=== PATIENT | female | born 1960 | race Caucasian/White ===

== ENCOUNTER → 2017-12-10 13:04 | Outpatient (CLI) | payer OTHER, SELFPAY | PROVIDERS: Family Provider Student in an Organized Health Care Education/Training Program; PCP Student in an Organized Health Care Education/Training Program; Visit Provider Student in an Organized Health Care Education/Training Program | DX: Z12.31 Encounter for screening mammogram for malignant neoplasm of breast (principal) | CPT/HCPCS: 77063; 77067 ==

== ENCOUNTER 2018-04-21 09:52 | Day surgery (SDC) | payer OTHER, SELFPAY ==
[2018-04-21] VITALS (11 sets, daily range): BP systolic 75–123; BP diastolic 50–74; PULSE 51–59; RESP 14–16; TEMP 36.4–37.7; O2SAT 96–100; BMI 24.3
--- NOTE | 2018-04-21 11:08 | PCM.HP.STD ---
Problem List (1) Personal history of colonic polyps Status: Acute History of Present Illness Date of Admission: 04/21/18 The patient is a 57 year old F who has had 2 previous colonoscopies. On her first colonoscopy she had colon polyps identified. Her most recent colonoscopy 5 years ago she was clear. She has no family history of colon cancer. She denies bright red blood per rectum or melena. No abdominal pain. No unexpected weight loss. She otherwise enjoys stable health. Past Medical History Allergies amoxicillin Allergy (Verified 04/19/18 13:27) Rash erythromycin base Allergy (Verified 04/19/18 13:27) Rash kiwi Allergy (Verified 04/19/18 13:27) Rash Sulfa (Sulfonamide Antibiotics) Allergy (Verified 04/19/18 13:27) Rash Home Medications: Ambulatory Orders Medication Instructions Recorded Cholecalciferol (VIT D3) [Vitamin 1,000 unit PO DAILY 06/03/14 D3] Citalopram [Celexa] 10 mg PO DAILY 06/03/14 Ascorbic Acid [Vitamin C] 500 mg PO DAILY 04/19/18 Aspirin E.C. [Ecotrin] 81 mg PO DAILY@0800 04/19/18 [place]-3 Fatty Acids/Fish Oil [Fish 1,000 mg PO DAILY 04/19/18 Oil 1,000 mg Capsule] Pyridoxine HCl [Vitamin B-6] 50 mg PO DAILY 04/19/18 Smoking Status: Never smoker Tobacco Use: Non-smoker Review of Systems Constitutional: Denies: Anorexia Cardiovascular: Denies: Chest Pain Respiratory: Denies: Cough Gastrointestinal: Denies: Abdominal Pain, Melena, Vomiting Skin: Denies: Jaundice Psychiatric: Denies: Anxiety Endocrine: Denies: Change in Body Habitus VTE Information - Inpt Only VTE Present on Admission: No Patient Problems: Active and Suspected Problems Personal history of colonic polyps (Acute) - Physical Exam General: Alert, Oriented x3, Cooperative, No apparent distress HEENT: Atraumatic Oral: Moist Mucosa Neck: Supple, No JVD Lungs: Clear to auscultation Cardiovascular: Regular rate, Regular Rhythm Abdomen: Bowel Sounds Present, Soft, Non Tender, Non-Distended Extremities: No Calf Tenderness Psych/Mental Status: Normal Affect Vital Signs Temp Pulse Resp BP Pulse Ox 99.9 F H 58 L 14 106/58 L 100 04/21/18 10:10 04/21/18 10:10 04/21/18 10:10 04/21/18 10:10 04/21/18 10:10 Oxygen Delivery Method Room Air Weight: 137 lb 9.095 oz Body Mass Index (BMI) 24.3 Assessment/Plan All Active Problems Personal history of colonic polyps (Acute) I am recommending the patient is screening colonoscopy with possible biopsy or polypectomy as indicated. She is aware of the technique, benefits, risks and alternatives. She has had an opportunity to ask and have questions answered. She presents via our open access program. We will proceed as noted. Tyrell Piedra M.D., F.A.C.S.
--- NOTE | 2018-04-21 11:54 | OP.ENDO_ITS ---
Patient Name: Lolis Tan Procedure Date: 04/21/2018 11:15 AM Date of : 1960 Age: 57 Procedure: Colonoscopy Indications: High risk colon cancer surveillance: Personal history of colonic polyps Providers: Tyrell Piedra MD Referring MD: Yared Cavazos Medicines: Midazolam 5 mg IV, Meperidine 100 mg IV Patient Profile: Last Colonoscopy: 5 years ago. Complications: No immediate complications. Procedure: Pre-Anesthesia Assessment: - Prior to the procedure, a History and Physical was performed, and patient medications and allergies were reviewed. The patient's tolerance of previous anesthesia was also reviewed. The risks and benefits of the procedure and the sedation options and risks were discussed with the patient. All questions were answered, and informed consent was obtained. Prior Anticoagulants: The patient has taken no previous anticoagulant or antiplatelet agents. ASA Grade Assessment: II - A patient with mild systemic disease. After reviewing the risks and benefits, the patient was deemed in satisfactory condition to undergo the procedure. After I obtained informed consent, the scope was passed under direct vision. Throughout the procedure, the patient's blood pressure, pulse, and oxygen saturations were monitored continuously. The adult colonoscope was introduced through the anus and advanced to the cecum, identified by appendiceal orifice and ileocecal valve. The colonoscopy was performed without difficulty. The patient tolerated the procedure well. The quality of the bowel preparation was good. The ileocecal valve and the appendiceal orifice were photographed. Moderate Sedation: Moderate (conscious) sedation was personally administered by the endoscopist. The following parameters were monitored: oxygen saturation, heart rate, blood pressure, and response to care. Total physician intraservice time was 15 minutes. Scope In: 11:29:30 AM Scope Withdrawal Time 0 hours 8 minutes 12 seconds Scope Out: 11:47:03 AM Total Procedure Duration Time 0 hours 17 minutes 33 seconds Findings: The perianal and digital rectal examinations were normal. The colon (entire examined portion) was moderately tortuous. Advancing the scope required changing the patient to a supine position and using manual pressure. The exam was otherwise without abnormality. Impression: - Tortuous colon. - The examination was otherwise normal. - No specimens collected. Recommendation: - Discharge patient to home. - Resume previous diet. - Continue present medications. - Repeat colonoscopy in 5 years for surveillance. Procedure Code(s): --- Professional --- G0105, Colorectal cancer screening; colonoscopy on individual at high risk 90021, 58, Moderate sedation services provided by the same physician or other qualified health inspector health care facilities performing the diagnostic or therapeutic service that the sedation supports, requiring the presence of an independent trained observer to assist in the monitoring of the patient's level of consciousness and physiological status; initial 15 minutes of intraservice time, patient age 5 years or older Diagnosis Code(s): --- Professional --- Z86.010, Personal history of colonic polyps Q43.8, Other specified congenital malformations of intestine CPT copyright 2017 [employer]. All rights reserved. The codes documented in this report are preliminary and upon analytics specialist review may be revised to meet current compliance requirements. Tyrell Piedra MD 04/21/2018 11:53:45 AM This report has been signed electronically. Number of Addenda: 0 Note Initiated On: 04/21/2018 11:15 AM
== END 2018-04-21 12:42 | disposition home or self-care (01) ==
LOC: EN 09:53 → AC 09:54
PROVIDERS: Family Provider Student in an Organized Health Care Education/Training Program; PCP Student in an Organized Health Care Education/Training Program; Referring Provider Student in an Organized Health Care Education/Training Program; Visit Provider Surgery
PROC: 0DJD8ZZ Inspection of Lower Intestinal Tract, Via Natural or Artificial Opening Endoscopic (ICD-10-PCS; CPT 45378; principal; 2018-04-21 10:55)
DX: Z86.010 Personal history of colon polyps (principal); Q43.8 Other specified congenital malformations of intestine; Z79.82 Long term (current) use of aspirin; Z88.2 Allergy status to sulfonamides
CPT/HCPCS: 45378; 99152; 99153; J7120

== ENCOUNTER → 2019-03-24 07:19 | Outpatient (CLI) | payer OTHER, SELFPAY ==
[2018-04-21 10:10] VITALS: BMI 24.3
--- NOTE | 2019-03-24 07:21 | BI_ITS ---
MAMMOGRAPHY - BILATERAL SCREENING REASON FOR EXAM: Female, 58 years old. Routine annual screening examination. PERTINENT HISTORY: Non-contributory. TECHNIQUE: Digital bilateral breast wayne (3D mammographic acquisition) in the CC and MLO projections. 2-D mediolateral oblique (MLO) and craniocaudad (CC) views of both breasts were obtained. CAD: Full Field Digital Mammography with Computer Added Detection was performed. COMPARISON: Comparison is made with prior study December 10, 2017 and September 25, 2016. FINDINGS: Breast Composition: There are scattered areas of fibroglandular density. There are no dominant masses or suspicious calcifications. Stable 1 cm well-defined nodule in the axillary region of the right breast in keeping with a small lymph node. No other significant abnormalities are identified. There has been no significant change since the prior study. BI/SCREEN MAMM (CAD) W/WAYNE BILAT IMPRESSION: Stable bilateral screening mammogram. Yearly follow-up mammogram recommended. (A) ASSESSMENT CATEGORY: BIRADS Category 2: Benign. A letter regarding these results will be sent to the patient by the facility within 30 days. Approximately 10% of breast cancers are not detected by mammography. A normal mammogram should not delay biopsy of a clinically suspicious abnormality. [id number] Electronically Signed: Azeem Tyler, at 10:29 EST , Service support ,
== END ==
PROVIDERS: Family Provider Student in an Organized Health Care Education/Training Program; PCP Student in an Organized Health Care Education/Training Program; Referring Provider Obstetrics & Gynecology; Visit Provider Obstetrics & Gynecology
DX: Z12.31 Encounter for screening mammogram for malignant neoplasm of breast (principal)
CPT/HCPCS: 77063; 77067

== ENCOUNTER → 2019-04-07 15:27 | Outpatient (CLI) | payer OTHER, SELFPAY ==
[2018-04-21 10:10] VITALS: BMI 24.3
--- NOTE | 2019-04-07 15:32 | VDLE_ITS ---
Reason For Study: RLE pain RIGHT LEFT GSV is normal. CFV is compressible, spontaneous, phasic, CFV is compressible, spontaneous, phasic, competent, and demonstrates normal competent and demonstrates normal augmentation. augmentation. FV is compressible, spontaneous, phasic, competent and demonstrates normal augmentation. POP V is compressible, spontaneous, phasic, competent and demonstrates normal augmentation. T/P Trunk is compressible. PTV is compressible. RT PerV is compressible. Procedure Exam performed in department. The exam was diagnostic. A preliminary report was called and/or faxed to Pauline Alonzo MECHANICAL INSPECTOR-C @ [phone] @ 3: 45 pm. Interpretation Summary Deep veins of the right lower extremity are patent and compressible segmentally. There is no evidence of right lower extremity deep vein thrombosis. Valvular competence appears intact within the proximal deep venous system on the right . The right great saphenous vein appears patent and compressible segmentally. Ordering Physician: Pauline Alonzo Referring Physician: Yared Gomes Performed By: Renata Portillo, CAROLINE, RVT
== END ==
PROVIDERS: Family Provider Student in an Organized Health Care Education/Training Program; PCP Student in an Organized Health Care Education/Training Program; Referring Provider Registered Nurse; Visit Provider Registered Nurse
DX: M79.661 Pain in right lower leg (principal)
CPT/HCPCS: 93971

== ENCOUNTER 2020-10-03 11:39 | Inpatient (IN) | payer OTHER, SELFPAY ==
[2018-04-21 10:10] VITALS: BMI 24.3
[2020-10-03] VITALS (11 sets, daily range): BP systolic 76–117; BP diastolic 33–71; PULSE 55–98; RESP 16–20; TEMP 36.2–37.2; O2SAT 94–100; BMI 26.0; BMI 26.6
--- NOTE | 2020-10-03 11:53 | RAD_ITS ---
STUDY: X-RAY CHEST REASON FOR EXAM: Female, 60 years old. dyspnea TECHNIQUE: Single AP portable view of the chest. COMPARISON: None. FINDINGS: The lungs are clear and expanded. There is no demonstrated pleural abnormality. Normal size heart. Normal mediastinum and kilo. Normal visualized pulmonary arteries. Normal visualized aortic arch and descending thoracic aorta. Normal visualized thoracic spine. Normal visualized ribs, clavicles, and shoulders. There is no demonstrated abnormality of the visualized soft tissue structures of the upper abdomen. RAD/Chest 1 View (Portable) IMPRESSION: Normal x-ray examination of the chest. Electronically Signed: Bernabe Jason MD at 13:05 EDT Tel , Service support ,
--- NOTE | 2020-10-03 11:54 | EKG12_ITS ---
Test Reason : Blood Pressure : / mmHG Vent. Rate : 058 BPM Atrial Rate : 058 BPM P-R Int : 154 ms QRS Dur : 114 ms QT Int : 434 ms P-R-T Axes : 040 050 039 degrees QTc Int : 426 ms Sinus bradycardia with Premature atrial complexes Right bundle branch block Abnormal ECG Confirmed by PAMELA PUTNAM, MOE ([id number]), editor city YOLY MACE ([id number]) on 10/07/2020 9:48:39 AM Referred By: SOFIE Confirmed By:MOE SANTIAGO MD
--- NOTE | 2020-10-03 11:55 | EDS_ITS ---
HPI History of Present Illness Chief Complaint: Weakness Informant: patient Narrative Narrative: 60-year-old female presents the emergency department with generalized weakness. She states that she is on day 15 of her Covid diagnosis. She started methylprednisolone 2 days ago. She states that she had felt that she was getting better but today when she got up she felt extremely weak and dizzy. States her blood pressure is lower than normal and her pulse ox was 89% at home. She notes continued cough. She notes no vomiting or diarrhea. She states she has been eating and drinking appropriately. [facility] Medical History (Updated 10/03/20 @ 14:[address] Jona Celeste DO) Depression Personal history of colonic polyps Home Medications cholecalciferol (vitamin D3) [Vitamin D3] 1,000 unit PO DAILY 06/03/14 [History Last Taken 06/03/14] citalopram 10 mg PO DAILY 06/03/14 [History Last Taken 06/03/14] ascorbic acid (vitamin C) [Vitamin C] 500 mg PO DAILY 04/19/18 [History Last Taken Unknown] aspirin 81 mg PO DAILY@0800 04/19/18 [History Last Taken 04/14/18] omega-3 fatty acids-fish oil [Fish Oil 1,000 mg Capsule] 1,000 mg PO DAILY 04/19/18 [History Last Taken 04/14/18] pyridoxine (vitamin B6) 50 mg PO DAILY 04/19/18 [History Last Taken Unknown] Allergy/AdvReac Type Severity Reaction Status Date / Time amoxicillin Allergy Rash Verified 10/03/20 11:43 erythromycin base Allergy Rash Verified 10/03/20 11:43 kiwi Allergy Rash Verified 10/03/20 11:43 Sulfa (Sulfonamide Allergy Rash Verified 10/03/20 11:43 Antibiotics) Social History (Updated 10/03/20 @ 11:[address] Jona Celeste DO) Smoking Status: Never smoker substance use type: does not use ROS ROS ED Constitutional Constitutional ED: Reports chills, fever(s) and other Details: Generalized weakness ; Denies weight loss Eyes Eyes: Denies change in vision or diplopia ENT ENT ED: Reports rhinorrhea; Denies ear pain or sore throat Cardiovascular Cardiovascular: Denies chest pain, orthopnea, palpitations or racing heartbeat Respiratory/Chest Respiratory/Chest: Reports cough, dyspnea and dyspnea on exertion; Denies orthopnea Gastrointestinal Gastrointestinal: Denies abdominal pain, diarrhea, nausea or vomiting Genitourinary Genitourinary ED: Denies dysuria, hematuria or urinary frequency Musculoskeletal Musculoskeletal: Reports myalgias; Denies arthralgias Integumentary Denies abscess or rash Neurologic Neurologic: Reports headache(s); Denies weakness Psychiatric Psychiatric: Denies anxiety, depression, suicidal ideation or suicidal thoughts Endocrine Endocrinology: Denies polydipsia, polyphagia or polyuria Allergic/Immunologic Allergic/Immunologic ED: Denies mouth swelling, tongue swelling or urticaria EXAM Physical Exam Const Vital Signs: 10/03/20 11:41 10/03/20 12:46 10/03/20 13:52 Temperature 97.1 F L 97.1 F L 98.9 F Temperature Source Temporal Temporal Temporal Pulse Rate 82 83 65 Pulse Rate [Lying] 88 Pulse Rate [Sitting] 90 Pulse Rate [Standing] 98 Respiratory Rate 16 17 17 Respiratory Effort Normal Non-Labored Respiratory Pattern Normal Blood Pressure 91/52 L 101/60 117/71 Blood Pressure [Lying] 101/60 Blood Pressure [Sitting] 99/57 L Blood Pressure [Standing] 76/33 L Blood Pressure Mean 65 73 86 Blood Pressure Mean [Lying] 73 Blood Pressure Mean [Sitting] 71 Blood Pressure Mean [Standing] 47 Pulse Ox 94 94 97 Oxygen Delivery Method Room Air Room Air Room Air Positive well nourished and well developed General Appearance ED: well developed HEENT Reports normocephalic, head/scalp atraumatic and moist mucous membranes Eyes PERRL and EOMs intact bilaterally Neck no lymphadenopathy, supple and no JVD Resp normal respiratory effort and clear to auscultation bilaterally Cardio regular rate, regular rhythm and no murmurs GI normal to inspection, nondistended, normoactive bowel sounds and non-tender Palpation: soft Back/Spine no CVA tenderness and normal ROM Extremity normal to inspection General Extremety ED: Negative for edema General Extremity: Negative for edema Neuro oriented x3 and CN's II-XII intact bilaterally Sensorium / Orientation: alert Motor Exam: strength 5/5 throughout Psych mental status grossly normal Mood & Affect: Negative for depressed or tearful Skin no rashes or lesions noted and no wounds MDM MDM MDM Narrative Medical decision making narrative: Patient is orthostatic positive. She received 2 L of IV fluids. Basic blood work was essentially negative. My interpretation of the plain film of the chest x-ray is no acute process CTA of the chest demonstrates no pulmonary embolism. Noted multifocal areas of pneumonitis. With ambulation the patient is 82% on room air. I will speak with her hospitalist regarding admission. Lab Data Labs: Laboratory Results - last 24 hr 10/03/20 10/03/20 10/03/20 12:40 12:40 13:45 WBC 5.6 RBC 4.28 Hgb 12.2 Hct 36.9 L MCV 86.2 MCH 28.5 MCHC 33.1 RDW Std Deviation 40.1 RDW Coeff of Marcial 12.8 Plt Count 194 MPV 9.9 Immature Gran % (Auto) 0.400 Neut % (Auto) 80.6 H Lymph % (Auto) 12.9 L [place] % (Auto) 5.9 Eos % (Auto) 0.0 Baso % (Auto) 0.2 Absolute Neuts (auto) 4.5 Absolute Lymphs (auto) 0.72 L Nucleated RBC % 0 Sodium 134 L Potassium 4.5 Chloride 99 Carbon Dioxide 28.0 Anion Gap 7 BUN 21 H Creatinine 0.74 Estim Creat Clear Calc 66.04 Est GFR (MDRD) Af Amer 103 Est GFR (MDRD) Non-Af 85 BUN/Creatinine Ratio 28.4 H Glucose 108 H Calcium 8.2 L Total Bilirubin 0.60 AST 26 ALT 13 Alkaline Phosphatase 73 Troponin I < 0.015 Total Protein 6.7 Albumin 3.3 Globulin 3.4 Albumin/Globulin Ratio 1.0 Urine Color Yellow Urine Clarity Clear Urine pH 6.5 Ur Specific [place] 1.005 Urine Protein Negative Urine Glucose (UA) Normal Urine Ketones 15 H Urine Occult Blood Negative Urine Nitrite Negative Urine Bilirubin Negative Urine Urobilinogen Normal Ur Leukocyte Esterase Negative Urine RBC 0 SEEN Urine WBC 0 SEEN Ur Squamous Epith Cells 0 SEEN Urine Bacteria 0 SEEN Urine Mucus 0 SEEN Radiography Diagnostic Testing: Radiology Impression Chest X-Ray 10/03/20 11:53 IMPRESSION: Normal x-ray examination of the chest. Electronically Signed: Bernabe Jason MD at 13:05 EDT Tel , Service support , Chest CTA 10/03/20 13:11 IMPRESSION: 1. No CT evidence of pulmonary embolism. 2. Bilateral subsegmental atelectasis or pneumonitis. Commonly reported imaging features of Covid 19 pneumonia are present. Other processes such as influenza pneumonia and organizing pneumonia, as can be seen with drug toxicity and connective tissue disease, can cause a similar imaging pattern. Electronically Signed: Bernabe Jason MD at 14:33 EDT Tel , Service support , Discharge Plan Triage Chief Complaint: Weakness ED Provider: Jona Celeste Dx/Rx/DC Orders Clinical Impression: COVID-19, Orthostatic hypotension, Exercise hypoxemia Prescriptions: No Action citalopram 10 MG tablet 10 mg PO DAILY RF: 0 cholecalciferol (vitamin D3) [Vitamin D3] 1,000 UNIT tablet 1,000 unit PO DAILY RF: 0 aspirin 81 MG tablet 81 mg PO DAILY@0800 RF: 0 pyridoxine (vitamin B6) 50 MG tablet 50 mg PO DAILY RF: 0 ascorbic acid (vitamin C) [Vitamin C] 500 MG Tablet.Er 500 mg PO DAILY RF: 0 omega-3 fatty acids-fish oil [Fish Oil] 1 EACH capsule 1,000 mg PO DAILY RF: 0 Primary Care Provider: Yared Cavazos Referrals: Yared Cavazos DO [Primary Care Provider] -
[2020-10-03] MEDS: 0.9% Normal Saline 1,000 ML 1000 ML IV ×2 (12:45→14:15)
[2020-10-03 12:52] LABS: Absolute Lymphocyte Count 0.72 X10^3/uL (0.83-4.51); Absolute Neutrophil Count 4.5 X10^3/uL (2.0-7.7); Basophil# 0.01 X10^3/uL; Basophil% 0.2 % (0-1); Hematocrit 36.9 % (37-47); Hemoglobin 12.2 g/dL (12.0-15.0); Lymphocyte # 0.72 X10^3/ul (0.83-4.51); Lymphocyte % 12.9 % (19-41); Mean Corp Hgb Conc 33.1 g/dL (32-36); Mean Corpuscular Hgb 28.5 pg (27.0-32.0); Mean Corpuscular Volume 86.2 fL (81-99); Mean Platelet Vol. 9.9 fl (6.2-12.0); Monocyte# 0.33 X10^3/uL; Monocyte% 5.9 % (0-10); NRBC Flagged by Analyzer 0 % (0-5); Neutrophil # 4.49 X10^3/uL (2.7-7.7); Neutrophil % 80.6 % (47-70); Platelet Count 194 K/mm3 (150-450); RBC Distribution Width CV 12.8 % (11.6-14.6); RBC Distribution Width SD 40.1 fl (35.1-43.9); Red Blood Count 4.28 M/mm3 (4.2-5.4); White Blood Count 5.6 K/mm3 (4.4-11.0)
[2020-10-03 13:09] LABS: AST(SGOT) 26 U/L (15-37); Alanine Aminotransfer ALT/SGPT 13 U/L (13-56); Albumin, Serum 3.3 g/dL (3.2-5.0); Alkaline Phosphatase 73 U/L (45-117); Anion Gap 7 (5-15); BUN 21 mg/dL (7-18); BUN/Creat Ratio 28.4 RATIO (10-20); Calcium,Total 8.2 mg/dL (8.5-10.1); Chloride 99 mmol/L (98-107); Creatinine, Serum 0.74 mg/dL (0.55-1.02); EST Glomerular Filtration Rate 85 mL/min (>60); Est Glom Filt Rate - Afr Amer 103 mL/min (>60); Estimated Creatinine Clearance 66.04 ml/min; Globulin 3.4 g/dL (2.2-4.2); Glucose 108 mg/dL (74-106); Potassium 4.5 mmol/L (3.5-5.1); Protein, Total 6.7 g/dL (6.4-8.2); Sodium Level 134 mmol/L (136-145)
--- NOTE | 2020-10-03 13:11 | CT_ITS ---
STUDY: CTA CHEST REASON FOR EXAM: Female, 60 years old. hypoxia covid 19 RADIATION DOSAGE (If Supplied By Facility): CTDIvol = ( 6.82 ) mGy, DLP = ( 222.66 ) mGycm TECHNIQUE: The examination was performed with the intravenous administration of IV 100mL Isovue-370. Post-processing of the angiographic images was performed, with multiplanar reformation and 3D reconstruction. Individualized dose optimization techniques were used for this CT. COMPARISON: Chest x-ray earlier today FINDINGS: Normal enhancement of the main pulmonary artery and right and left pulmonary arteries. Normal enhancement of the bilateral peripheral pulmonary arteries. There is no demonstrated pulmonary embolism. Normal thoracic aorta and visualized great vessels. There is no demonstrated aortic dissection. Normal heart and pericardium. Normal mediastinum. Normal hilar regions. Normal visualized trachea and bronchi. The lungs are well expanded. Bilateral patchy peripheral groundglass opacities consistent with subsegmental atelectasis or pneumonitis. This is most prominent in the left lower lobe. Normal pleura. Normal chest wall structures. Normal osseous structures. Normal visualized upper abdomen. CT/CTA Chest W/WO Contrast IMPRESSION: 1. No CT evidence of pulmonary embolism. 2. Bilateral subsegmental atelectasis or pneumonitis. Commonly reported imaging features of Covid 19 pneumonia are present. Other processes such as influenza pneumonia and organizing pneumonia, as can be seen with drug toxicity and connective tissue disease, can cause a similar imaging pattern. Electronically Signed: Bernabe Jason MD at 14:33 EDT Tel , Service support ,
[2020-10-03 13:52] LABS: Bacteria 0 SEEN /hpf (None Seen); Mucous, Urine 0 SEEN /hpf (<or=2+); Red Blood Cells-Urine 0 SEEN /hpf (0-5); Squamous Epithelial Cells - UA 0 SEEN /hpf (5-10); White Blood Cells 0 SEEN /hpf (0-5)
[2020-10-03 14:00] LABS: Color, Urine Yellow (Yellow); Glucose, Dipstick Normal (Normal); Ketone-Dipstick 15 mg/dl (Negative); Leukocyte Esterase-Dipstick Negative /ul (Negative); Nitrite-Dipstick Negative (Negative); Occult Blood-Urine Negative /ul (Negative); Protein-Dipstick Negative (Negative); Specific Gravity, Urine 1.005 (1.002-1.030); Urine Bilirubin Dipstick Negative (Negative); Urine Clarity Clear (Clear); Urine Urobilinogen Normal (Normal); Urine pH 6.5 (5.0 - 8.0)
--- NOTE | 2020-10-03 14:45 | HP.PCM.HOS_ITS ---
HPI - General General Date of Admission: 10/03/20 Date of Service: 10/03/20 Chief Complaint: Fatigue, malaise, dyspnea, cough, recent COVID Dx. HPI Narrative The patient is a 60 y/o F w/ PMHx: Anxiety and Depression who presents to the [facility] ED on 10/03/20 with history of Covid symptom onset approximately 15 days prior with progressively worsening fatigue, malaise, dizziness and reportedly oxygenation level 89% at home despite recent initiation of Medrol Dosepak 2 days prior in addition to lower BP than her normal baseline with ongoing mild cough without marked dyspnea in addition to nausea and occasional emesis. She notes during her illness she has had fever, body aches, frontal throbbing headaches, nausea, emesis without abdominal discomfort or diarrhea, decreased sense of taste/smell. She notes being A+ blood type. Her was also ill at the same time but recovered more quickly. She and her spouse were not vaccinated. Work-up in the ED included T 97.1, heart rate 82, BP initially 191/52 with improvement to 117/71, respiratory rate 16, 94 to 97% on room air, notable orthostatic hypotension upon ED presentation with SBP in the 70s, CBC with WC 5.6, hemoglobin 12.2, platelet 194 with lymphopenia, CMP with sodium 134, B UN/creatinine 21/0.74, glucose 108, troponin less than 0.015, unremarkable hepatic profile otherwise, urinalysis not marked appearing, chest x-ray not marked appearing however follow-up CTPA with no evidence of pulmonary emboli however patient with bilateral subsegmental atelectasis and/or pneumonitis consistent with COVID-19 pneumonia. In the ED given notable orthostasis, patient given NS bolus. [facility] Medical History (Updated 10/03/20 @ 15:[address] Audra Bosch MD) Anxiety and depression Personal history of colonic polyps Home Medications cholecalciferol (vitamin D3) [Vitamin D3] 1,000 unit PO DAILY 06/03/14 [History Last Taken 06/03/14] citalopram 10 mg PO DAILY 06/03/14 [History Last Taken 06/03/14] ascorbic acid (vitamin C) [Vitamin C] 500 mg PO DAILY 04/19/18 [History Last T aken Unknown] aspirin 81 mg PO DAILY@0800 04/19/18 [History Last Taken 04/14/18] omega-3 fatty acids-fish oil [Fish Oil 1,000 mg Capsule] 1,000 mg PO DAILY 04/19/18 [History Last Taken 04/14/18] pyridoxine (vitamin B6) 50 mg PO DAILY 04/19/18 [History Last Taken Unknown] methylprednisolone [Medrol (Kishore)] See Taper PO DAILY 10/03/20 [History Last Taken 10/03/20] zinc sulfate 50 mg PO DAILY 10/03/20 [History Last Taken 10/02/20] Allergy/AdvReac Type Severity Reaction Status Date / Time amoxicillin Allergy Rash Verified 10/03/20 11:43 erythromycin base Allergy Rash Verified 10/03/20 11:43 kiwi Allergy Rash Verified 10/03/20 11:43 Sulfa (Sulfonamide Allergy Rash Verified 10/03/20 11:43 Antibiotics) other (Patient denies any marked maternal or paternal family history including HD, DM, CA.) Surgical History (Updated 10/03/20 @ 15:[address] Audra Bosch MD) Hx of cholecystectomy S/P tonsillectomy and adenoidectomy Social History (Updated 10/03/20 @ 15:[address] Audra Bosch MD) household members: spouse Smoking Status: Never smoker alcohol intake: never substance use type: does not use ROS ROS Narrative Admission Review of Systems: CONSTITUTIONAL: No weight loss, + fever, chills, weakness or fatigue. HEENT: Eyes: No visual loss, blurred vision, double vision or yellow sclerae. Ears, Nose, Throat: No hearing loss, sneezing, congestion, runny nose or sore throat. SKIN: No rash or itching, lesions, wounds. CARDIOVASCULAR: No chest pain, chest pressure or chest discomfort, palpitations, edema, orthopnea, syncopal events. RESPIRATORY: + Cough, No shortness of breath, wheezing, hemoptysis. GASTROINTESTINAL: + anorexia, nausea, vomiting, No diarrhea, abdominal pain, melena, BRBPR. GENITOURINARY: No dysuria, frequency, urgency or retention. NEUROLOGICAL: + Dizziness, lightheadedness, No headache, syncope, paralysis, ataxia, numbness or tingling in the extremities, focal weakness, change in bowel or bladder control, seizure. MUSCULOSKELETAL: + muscle, back pain, joint pain or stiffness. HEMATOLOGIC: No anemia, bleeding or bruising. LYMPHATICS: No enlarged nodes. No history of splenectomy. PSYCHIATRIC: + history of depression or anxiety. ENDOCRINOLOGIC: No reports of sweating, cold or heat intolerance. No polyuria or polydipsia. ALLERGIES: No history of asthma, hives, eczema or rhinitis. Vital Signs Vital Signs Vital Signs: 10/03/20 11:41 10/03/20 12:46 10/03/20 13:52 Temperature 97.1 F L 97.1 F L 98.9 F Temperature Source Temporal Temporal Temporal Pulse Rate 82 83 65 Pulse Rate [Lying] 88 Pulse Rate [Sitting] 90 Pulse Rate [Standing] 98 Respiratory Rate 16 17 17 Respiratory Effort Normal Non-Labored Respiratory Pattern Normal Blood Pressure 91/52 L 101/60 117/71 Blood Pressure [Lying] 101/60 Blood Pressure [Sitting] 99/57 L Blood Pressure [Standing] 76/33 L Blood Pressure Mean 65 73 86 Blood Pressure Mean [Lying] 73 Blood Pressure Mean [Sitting] 71 Blood Pressure Mean [Standing] 47 Pulse Ox 94 94 97 Oxygen Delivery Method Room Air Room Air Room Air Weight Weight: 147 lb Body Mass Index (BMI) 26.0 Physical Exam Narrative Physical Examination: General: awake, alert, oriented x 3 and cooperative, seated upright in the ED bed in no apparent distress but fatigued and ill appearing. Skin: normal color, normal turgor, no icterus, no cyanosis. HEENT: AT/NC, EOMI, PERRLA, dry MM, no carotid bruits or JVD noted. Lungs: Diffusely diminished, no respiratory distress noted, mild effort, no rales, ronchi or wheezing. Heart: Regular rate and rhythm; no gallop, rub audible. Abdomen: soft, NTTP, ND, moderately hyperactive BS, no HSM. Extremities: no cyanosis, clubbing, or edema. Neurological: patient awake, alert, oriented as noted, cognitive function intact; pupils equally reactive to light and accommodation, cranial nerves II- XII grossly normal, moving all 4 extremities, no focal deficits, strength mildly to moderately globally decreased secondary to acute presentation. Psychiatric: affect appears fatigued, ill appearing, no acute evidence of depressive or anxiety feelings. Results Lab / Micro Data Result Diagrams: 10/03/20 12:40 10/03/20 12:40 Labs: Laboratory Results - last 24 hr 10/03/20 10/03/20 10/03/20 12:40 12:40 13:45 WBC 5.6 RBC 4.28 Hgb 12.2 Hct 36.9 L MCV 86.2 MCH 28.5 MCHC 33.1 RDW Std Deviation 40.1 RDW Coeff of Marcial 12.8 Plt Count 194 MPV 9.9 Immature Gran % (Auto) 0.400 Neut % (Auto) 80.6 H Lymph % (Auto) 12.9 L [place] % (Auto) 5.9 Eos % (Auto) 0.0 Baso % (Auto) 0.2 Absolute Neuts (auto) 4.5 Absolute Lymphs (auto) 0.72 L Nucleated RBC % 0 Sodium 134 L Potassium 4.5 Chloride 99 Carbon Dioxide 28.0 Anion Gap 7 BUN 21 H Creatinine 0.74 Estim Creat Clear Calc 66.04 Est GFR (MDRD) Af Amer 103 Est GFR (MDRD) Non-Af 85 BUN/Creatinine Ratio 28.4 H Glucose 108 H Calcium 8.2 L Total Bilirubin 0.60 AST 26 ALT 13 Alkaline Phosphatase 73 Troponin I < 0.015 Total Protein 6.7 Albumin 3.3 Globulin 3.4 Albumin/Globulin Ratio 1.0 Urine Color Yellow Urine Clarity Clear Urine pH 6.5 Ur Specific [place] 1.005 Urine Protein Negative Urine Glucose (UA) Normal Urine Ketones 15 H Urine Occult Blood Negative Urine Nitrite Negative Urine Bilirubin Negative Urine Urobilinogen Normal Ur Leukocyte Esterase Negative Urine RBC 0 SEEN Urine WBC 0 SEEN Ur Squamous Epith Cells 0 SEEN Urine Bacteria 0 SEEN Urine Mucus 0 SEEN Radiology Impression Chest X-Ray 10/03/20 11:53 IMPRESSION: Normal x-ray examination of the chest. Electronically Signed: Bernabe Jason MD at 13:05 EDT Tel , Service support , Chest CTA 10/03/20 13:11 IMPRESSION: 1. No CT evidence of pulmonary embolism. 2. Bilateral subsegmental atelectasis or pneumonitis. Commonly reported imaging features of Covid 19 pneumonia are present. Other processes such as influenza pneumonia and organizing pneumonia, as can be seen with drug toxicity and connective tissue disease, can cause a similar imaging pattern. Electronically Signed: Benrabe Jason MD at 14:33 EDT Tel , Service support , Assessment & Plan Assessment/Plan (1) Orthostatic hypotension: (2) Hypoxia: (3) COVID-19: PLAN: The patient is a 60 y/o F w/ PMHx: Anxiety and Depression who presents to the [facility] ED on 10/03/20 with history of Covid symptom onset approximately 15 days prior with progressively worsening fatigue, malaise, dizziness and reportedly oxygenation level 89% at home despite recent initiation of Medrol Dosepak 2 days prior in addition to lower BP than her normal baseline with ongoing mild cough without marked dyspnea in addition to nausea and occasional emesis. 1. Acute Hypoxia (94%) secondary to Bilateral Pneumonia secondary to Acute Viral Syndrome, COVID-19 w/ Orthostatic Hypotension (possibly secondary to GI losses w/ N/V): Will admit to the COVID unit, will maintain on oxygen with wean as tolerated to room air, PRN albuterol, HOB, IS parameters w/ pending sputum cultures, respiratory viral panel and urine antigens, will obtain D-dimer, p rocalcitonin, CRP, CPK, Ferritin, LDH and BNP, continue supportive care including q 2 hour turning including prone given no prone bed availability and judicious hydration with repeat AM orthostatics given notable BP changes during ED evaluation, closely monitor for worsening status for ARDS and multiorgan failure, will initiate and continue IV decadron given hypoxia in the ED 94% x 10 doses, given presentation timeline patient not candidate for remdesivir. 2. Anxiety and Depression: Will continue home citalopram regimen. 3. DVT Prophylaxis: SCDs, lovenox. 4. CODE status: Patient HCPOA and living will both not set-up. Given COVID diagnosis and presentation, discussed CODE status at length including difference between FULL code, DNR-CCA and DNR-CC status. Following discussions about the differences in these status, requested Full Code status. Amenable to airvo and BIPAP if necessary, although respiratory status not severe. Advanced Care Planning Face to Face Time: 16 minutes. Charges/Coding Visit Charges OBSV E&M: 75439 Initial observation care L3 Procedures Hospitalists Procedures: [id number] Advncd Care Plan 30 Min
--- NOTE | 2020-10-03 15:26 | ED.RN ---
report called to icu by this rn to james camacho rn.
[2020-10-03] MEDS: 0.9% Normal Saline 1,000 ML 150 ML IV (16:04)
[2020-10-03] MEDS: 0.9% Saline Lock 10 ML Syringe IV (16:04)
[2020-10-03 16:44] LABS: BNP,B-Type NATRIURETIC PEPTIDE 276.9 pg/mL (0-100)
[2020-10-03 17:02] LABS: Ferritin 223 ng/mL (8-252); LDH 353 U/L (84-246); Magnesium 1.9 mg/dL (1.6-2.6)
[2020-10-03 17:10] LABS: D-Dimer Quantitative (DVT/PE) 2.41 FEU/ug/m (0.27-0.49)
[2020-10-03 17:53] LABS: Procalcitonin < 0.04 ng/mL (0.00-0.09)
[2020-10-04] VITALS (13 sets, daily range): BP systolic 89–112; BP diastolic 49–57; PULSE 51–78; RESP 18–20; TEMP 36.6–37.6; O2SAT 91–97
--- NOTE | 2020-10-04 01:37 | NURSING ---
Pt sats dropping to 87-89% on room air while sleeping; O2 @ 2L applied, sats now 97%
[2020-10-04 05:21] LABS: Absolute Lymphocyte Count 0.77 X10^3/uL (0.83-4.51); Absolute Neutrophil Count 2.5 X10^3/uL (2.0-7.7); Basophil# 0.01 X10^3/uL; Basophil% 0.3 % (0-1); Hematocrit 34.2 % (37-47); Hemoglobin 11.1 g/dL (12.0-15.0); Lymphocyte # 0.77 X10^3/ul (0.83-4.51); Lymphocyte % 22.2 % (19-41); Mean Corp Hgb Conc 32.5 g/dL (32-36); Mean Corpuscular Hgb 28.5 pg (27.0-32.0); Mean Corpuscular Volume 87.9 fL (81-99); Mean Platelet Vol. 9.8 fl (6.2-12.0); Monocyte# 0.22 X10^3/uL; Monocyte% 6.3 % (0-10); NRBC Flagged by Analyzer 0 % (0-5); Neutrophil # 2.46 X10^3/uL (2.7-7.7); Neutrophil % 70.9 % (47-70); Platelet Count 178 K/mm3 (150-450); RBC Distribution Width CV 13.1 % (11.6-14.6); Red Blood Count 3.89 M/mm3 (4.2-5.4); White Blood Count 3.5 K/mm3 (4.4-11.0)
[2020-10-04 05:37] LABS: AST(SGOT) 15 U/L (15-37); Alanine Aminotransfer ALT/SGPT 11 U/L (13-56); Albumin, Serum 2.7 g/dL (3.2-5.0); Alkaline Phosphatase 64 U/L (45-117); Anion Gap 5 (5-15); BUN 13 mg/dL (7-18); BUN/Creat Ratio 23.4 RATIO (10-20); Calcium,Total 7.8 mg/dL (8.5-10.1); Chloride 108 mmol/L (98-107); Creatinine, Serum 0.56 mg/dL (0.55-1.02); EST Glomerular Filtration Rate 118 mL/min (>60); Est Glom Filt Rate - Afr Amer 143 mL/min (>60); Estimated Creatinine Clearance 87.27 ml/min; Globulin 2.7 g/dL (2.2-4.2); Glucose 87 mg/dL (74-106); Potassium 3.7 mmol/L (3.5-5.1); Protein, Total 5.4 g/dL (6.4-8.2); Sodium Level 138 mmol/L (136-145)
[2020-10-04] MEDS: 0.9% Saline Lock 10 ML Syringe IV (06:31)
--- NOTE | 2020-10-04 07:12 | PN.HOSP_ITS ---
Subjective Subjective Patient is a 60-year-old lady whose symptoms started almost 2 weeks prior to her admission diagnosed with Covid 1910 days ago who presented to the emergency department with progressive generalized weakness. Patient had been started on steroid by PCP as outpatient. Patient did complain of feeling dizzy and blood p ressure was slightly low. Objective Data Objective Data Vital Signs: Vital Signs Temp Pulse Resp BP Pulse Ox 98.7 F 51 L 18 101/57 L 96 10/04/20 02:47 10/04/20 03:36 10/04/20 02:47 10/04/20 02:47 10/04/20 02:47 Oxygen Flow Rate (L/min) 2 Oxygen Delivery Method Venturi Mask Weight: 67.6 kg Body Mass Index (BMI) 26.6 Intake & Output: Intake and Output for Last 24 Hours 10/02/20 10/03/20 10/04/20 23:59 23:59 23:59 Intake Total 3200 / 3200 400 / 400 Output Total 900 / 900 300 / 300 Balance 2300 / 2300 100 / 100 Lab / Micro Data Result Diagrams: 10/04/20 05:05 10/04/20 05:05 Micro: Microbiology 10/03/20 17:00 Mucosa - Nasopharyngeal Respiratory Panel (PCR) - Final 10/03/20 16:00 Urine, Random Legionella Antigen - Final 10/03/20 16:00 Urine, Random Streptococcus pneumoniae Antigen (M - Final Radiography Diagnostic Testing: Radiology Impression Chest X-Ray 10/03/20 11:53 IMPRESSION: Normal x-ray examination of the chest. Electronically Signed: Bernabe Jason MD at 13:05 EDT Tel , Service support , Chest CTA 10/03/20 13:11 IMPRESSION: 1. No CT evidence of pulmonary embolism. 2. Bilateral subsegmental atelectasis or pneumonitis. Commonly reported imaging features of Covid 19 pneumonia are present. Other processes such as influenza pneumonia and organizing pneumonia, as can be seen with drug toxicity and connective tissue disease, can cause a similar imaging pattern. Electronically Signed: Bernabe Jason MD at 14:33 EDT Tel , Service support , Physical Exam Narrative GENERAL: cooperative HEENT: Atraumatic; EYES; Anicteric, Normal Conjunctiva NECK; supple, normal thyroid, RESPIRATORY: Diminished to auscultation CARDIOVASCULAR: Regular S1 S2, GI: soft, normoactive bowel sounds, : No Renal angle tenderness; EXTREMITIES: No edema, no clubbing, MUSCULOSKELETAL: no muscle waisting NEURO: Awake; no lateralizing signs. SKIN: No Rash PSYCH; Flat affect Assessment & Plan Assessment/Plan (1) Orthostatic hypotension: (2) Hypoxia: (3) COVID-19: PLAN: Patient is a 60-year-old lady whose symptoms started almost 2 weeks prior to her admission diagnosed with Covid 1910 days ago who presented to the emergency department with progressive generalized weakness. Patient had been started on steroid by PCP as outpatient. Patient did complain of feeling dizzy and blood pressure was slightly low. 1. SARS-CoV-2 pneumonia ?CTA obtained on admission demonstrated bilateral subsegmental atelectasis/pneumonitis. Patient however remains stable currently not on any oxygen.. Did encourage the use of incentive spirometry. 2. Depression with anxiety ?Patient is on citalopram continue 3. DVT prophylaxis ?Lovenox
[2020-10-04] MEDS: Aspirin E.C. 81 MG Tablet PO (08:27)
[2020-10-04] MEDS: Enoxaparin 40 MG/0.4 ML Syringe SC (08:27)
[2020-10-04] MEDS: Citalopram 10 MG Tablet PO (08:27)
--- NOTE | 2020-10-04 10:25 | CASEMGMT ---
CLAUDETTE DAVENPORT Assessment: Face to Face with pt for initial transition planning/care coordination assessment. RN ISSAC introduced self and role at [facility], pt voices understanding and consents to assessment. Pt is A/O x4 and answers all questions appropriately at this time. Care providers, pharmacy, and demographics verified/updated. Admitting Dx: Covid PNA, orthostatic hypotension PCP: Dirk Specialists: Pt denies having any specialists. [facility] Insurance: [employer] Prescription Benefit: yes LW/HPOA: Pt had DPOA on file at [facility]. DPOA is Neeraj Bosch. LNOK: George Tan, ; Elliot Lee, son Living Arrangements: Pt lives in a split level house with one step to enter with her . Pt is I in ADL's and denies concerns at home. Transportation: Pt drives self and denies issues with transportation. DME/HHC/SNF: Pt has BSC and a walker at home, doesn't use. No hx of HHC or SNF. 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 Pt states no concerns with going home at time of dc. Pt states no further concerns/needs. CM to follow oxygen needs. Currently pt is on RA. Patient was provided a list of HHC providers including quality and resource use data and consistent with the patient?s preferred geographic region, medical needs, and insurance network. The patient?s preferred provider is [facility]. Advised pt to ask CM if any further question/concerns/needs arise, voices understanding. Pt Goal: Home Plan: Home
[2020-10-05] VITALS (10 sets, daily range): BP systolic 91–100; BP diastolic 51–60; PULSE 55–71; RESP 19–24; TEMP 36.2–36.9; O2SAT 92–97
[2020-10-05 03:35] LABS: Absolute Lymphocyte Count 1.23 X10^3/uL (0.83-4.51); Absolute Neutrophil Count 2.9 X10^3/uL (2.0-7.7); Basophil# 0.01 X10^3/uL; Basophil% 0.2 % (0-1); Hematocrit 34.2 % (37-47); Hemoglobin 11.2 g/dL (12.0-15.0); Lymphocyte # 1.23 X10^3/ul (0.83-4.51); Lymphocyte % 27.9 % (19-41); Mean Corp Hgb Conc 32.7 g/dL (32-36); Mean Corpuscular Hgb 28.5 pg (27.0-32.0); Mean Platelet Vol. 9.5 fl (6.2-12.0); Monocyte# 0.25 X10^3/uL; Monocyte% 5.7 % (0-10); NRBC Flagged by Analyzer 0 % (0-5); Neutrophil # 2.91 X10^3/uL (2.7-7.7); Platelet Count 196 K/mm3 (150-450); RBC Distribution Width CV 12.8 % (11.6-14.6); Red Blood Count 3.93 M/mm3 (4.2-5.4); White Blood Count 4.4 K/mm3 (4.4-11.0)
[2020-10-05 03:52] LABS: Anion Gap 5 (5-15); BUN 10 mg/dL (7-18); BUN/Creat Ratio 16.2 RATIO (10-20); Chloride 104 mmol/L (98-107); Creatinine, Serum 0.62 mg/dL (0.55-1.02); EST Glomerular Filtration Rate 104 mL/min (>60); Est Glom Filt Rate - Afr Amer 126 mL/min (>60); Estimated Creatinine Clearance 78.82 ml/min; Glucose 98 mg/dL (74-106); Magnesium 1.9 mg/dL (1.6-2.6); Potassium 3.7 mmol/L (3.5-5.1); Sodium Level 136 mmol/L (136-145)
[2020-10-05] MEDS: Aspirin E.C. 81 MG Tablet PO (08:59)
[2020-10-05] MEDS: Citalopram 10 MG Tablet PO (08:59)
[2020-10-05] MEDS: Enoxaparin 40 MG/0.4 ML Syringe SC (08:59)
--- NOTE | 2020-10-05 09:32 | PCM.DC.SUM ---
Providers Date of Admission: 10/03/20 Primary Care Physician: Dr. Yared Cavazos, DO Reason For Visit: COVID PNA, ORTHOSTATIS HYPOTENSION Diagnosis Discharge Diagnosis (1) Orthostatic hypotension: Status: Acute Code(s): I95.1 - Orthostatic hypotension (2) Hypoxia: Status: Acute Code(s): R09.02 - Hypoxemia (3) COVID-19: Status: Acute Code(s): U07.1 - COVID-19 Medications at Discharge Home Medications cholecalciferol (vitamin D3) [Vitamin D3] 1,000 unit PO DAILY 06/03/14 citalopram 10 mg PO DAILY 06/03/14 Fish Oil 1,000 mg PO DAILY 04/19/18 ascorbic acid (vitamin C) [Vitamin C] 500 mg PO DAILY 04/19/18 aspirin 81 mg PO DAILY@0800 04/19/18 pyridoxine (vitamin B6) 50 mg PO DAILY 04/19/18 zinc sulfate 50 mg PO DAILY 10/03/20 Hospital Course Summary of Care Provided Minutes Spent on Discharge: 35 Hospital Course: Patient is a 60-year-old lady whose symptoms started almost 2 weeks prior to her admission diagnosed with Covid 1910 days ago who presented to the emergency department with progressive generalized weakness. Patient had been started on steroid by PCP as outpatient. Patient did complain of feeling dizzy and blood pressure was slightly low. 1. SARS-CoV-2 pneumonia ?CTA obtained on admission demonstrated bilateral subsegmental atelectasis/pneumonitis. Patient however remains stable currently not on any oxygen.. Did encourage the use of incentive spirometry. ?10/05/2020; patient did remain stable she was assessed for home oxygen prior to being discharged patient did not did not require oxygen. She was however noted to be slightly hypoxic especially at night. She was instructed to follow-up with PCP to arrange for sleep study as outpatient 2. Depression with anxiety ?Patient is on citalopram continue 3. DVT prophylaxis ?Lovenox Physical Exam Narrative GENERAL: cooperative HEENT: Atraumatic; EYES; Anicteric, Normal Conjunctiva NECK; supple, normal thyroid, RESPIRATORY: Diminished to auscultation CARDIOVASCULAR: Regular S1 S2, GI: soft, normoactive bowel sounds, : No Renal angle tenderness; EXTREMITIES: No edema, no clubbing, MUSCULOSKELETAL: no muscle waisting NEURO: Awake; no lateralizing signs. SKIN: No Rash PSYCH; Flat affect ABG / Lab / Microbiology Data Result Diagrams: 10/05/20 03:30 10/05/20 03:30 Laboratory: Laboratory Results - last 24 hr 10/05/20 10/05/20 03:30 03:30 WBC 4.4 RBC 3.93 L Hgb 11.2 L Hct 34.2 L MCV 87.0 MCH 28.5 MCHC 32.7 RDW Std Deviation 41.0 RDW Coeff of Marcial 12.8 Plt Count 196 MPV 9.5 Immature Gran % (Auto) 0.200 Neut % (Auto) 66.0 Lymph % (Auto) 27.9 [place] % (Auto) 5.7 Eos % (Auto) 0.0 Baso % (Auto) 0.2 Absolute Neuts (auto) 2.9 Absolute Lymphs (auto) 1.23 Nucleated RBC % 0 Sodium 136 Potassium 3.7 Chloride 104 Carbon Dioxide 27.0 Anion Gap 5 BUN 10 Creatinine 0.62 Estim Creat Clear Calc 78.82 Est GFR (MDRD) Af Amer 126 Est GFR (MDRD) Non-Af 104 BUN/Creatinine Ratio 16.2 Glucose 98 Calcium 8.0 L Magnesium 1.9 Microbiology: Microbiology 10/03/20 16:40 Gram Stain - Final Sputum, Expectorated/Coughed Respiratory Culture - Preliminary Appears to be normal respiratory wofl. Further studies to follow. Microbiology 10/03/20 16:40 Sputum, Expectorated/Coughed Gram Stain - Final 10/03/20 16:40 Sputum, Expectorated/Coughed Respiratory Culture - Preliminary Appears to be normal respiratory wolf. Further studies to follow. 10/03/20 17:00 Mucosa - Nasopharyngeal Respiratory Panel (PCR) - Final 10/03/20 16:00 Urine, Random Legionella Antigen - Final 10/03/20 16:00 Urine, Random Streptococcus pneumoniae Antigen (M - Final D/C Instructions Discharge Diet: No restrictions Discharge Activity: Return to Normal Activity Call your doctor if you observe: Fever of 101 or Higher, Shortness of breath, Fainting spells and Chest pain Meaningful Use Info Meaningful Use Diagnoses (Choose all that apply): None applicable Discharge Plan Admission Admit Date/Time: 10/03/20 14:55 Primary Reason for Your Visit: SARS-CoV-2 infection Attending Provider: Sandeep Martinez Primary Care Provider: Yared Cavazos Instructions Forms: Work / School Excuse Patient Instructions: Coronavirus Disease 2019 (COVID-19): Overview, Coronavirus Disease 2019 (COVID-19): Caring for Yourself or Others Discharge Orders/Prescriptions Prescriptions: Continued citalopram 10 MG tablet 10 mg PO DAILY RF: 0 cholecalciferol (vitamin D3) [Vitamin D3] 1,000 UNIT tablet 1,000 unit PO DAILY RF: 0 aspirin 81 MG tablet 81 mg PO DAILY@0800 RF: 0 pyridoxine (vitamin B6) 50 MG tablet 50 mg PO DAILY RF: 0 ascorbic acid (vitamin C) [Vitamin C] 500 MG tablet extended release 500 mg PO DAILY RF: 0 Fish Oil 1 EACH capsule 1,000 mg PO DAILY RF: 0 zinc sulfate 50 mg zinc (220 mg) Tablet 50 mg PO DAILY RF: 0 Discontinued methylprednisolone [Medrol (Kishore)] 4 mg tablets,dose pack See Taper mg PO DAILY RF: 0 Referrals / Follow Up: Yared Cavazos DO [Primary Care Provider] - Within 2 Weeks Disposition Disposition (needs filled in before D/C Order can be placed): Home, self care Charges/Coding Visit Charges Inpatient E&M: 90929 Disch Hosp
--- NOTE | 2020-10-05 09:36 | PCM.DC ---
Discharge Instructions Diet Discharge Diet: No restrictions Dressing / Incision Call your doctor if you observe: Fever of 101 or Higher, Shortness of breath, Fainting spells and Chest pain Follow Up Care Test Results: Test results from this visit will be discussed in further detail at your follow-up appointment, if applicable. Discharge Plan Admission Admit Date/Time: 10/03/20 14:55 Primary Reason for Your Visit: SARS-CoV-2 infection Attending Provider: Sandeep Martinez Primary Care Provider: Yared Cavazos Instructions Forms: Work / School Excuse Patient Instructions: Coronavirus Disease 2019 (COVID-19): Overview, Coronavirus Disease 2019 (COVID-19): Caring for Yourself or Others Discharge Orders/Prescriptions Prescriptions: Continued citalopram 10 MG tablet 10 mg PO DAILY RF: 0 cholecalciferol (vitamin D3) [Vitamin D3] 1,000 UNIT tablet 1,000 unit PO DAILY RF: 0 aspirin 81 MG tablet 81 mg PO DAILY@0800 RF: 0 pyridoxine (vitamin B6) 50 MG tablet 50 mg PO DAILY RF: 0 ascorbic acid (vitamin C) [Vitamin C] 500 MG tablet extended release 500 mg PO DAILY RF: 0 Fish Oil 1 EACH capsule 1,000 mg PO DAILY RF: 0 zinc sulfate 50 mg zinc (220 mg) Tablet 50 mg PO DAILY RF: 0 Discontinued methylprednisolone [Medrol (Kishore)] 4 mg tablets,dose pack See Taper mg PO DAILY RF: 0 Referrals / Follow Up: Yared Cavazos DO [Primary Care Provider] - Within 2 Weeks Disposition Disposition (needs filled in before D/C Order can be placed): Home, self care
== END 2020-10-05 13:45 | disposition home or self-care (01) | DRG 177 ==
LOC: ED 12:27 → ICU 15:54
PROVIDERS: Admitting Provider Family Medicine; Emergency Provider Emergency Medicine; PCP Student in an Organized Health Care Education/Training Program; Visit Provider Internal Medicine
DX: U07.1 COVID-19 (principal); J12.82 Pneumonia due to coronavirus disease 2019; J98.11 Atelectasis; I95.1 Orthostatic hypotension; F41.8 Other specified anxiety disorders; Z66 Do not resuscitate; Z87.19 Personal history of other diseases of the digestive system; Z79.82 Long term (current) use of aspirin; Z88.0 Allergy status to penicillin; Z90.49 Acquired absence of other specified parts of digestive tract; Z88.2 Allergy status to sulfonamides
CPT/HCPCS: 71045; 71275; 80048; 80053; 81001; 82728; 83615; 83735; 83880; 84145; 84484; 85025; 85379; 86140; 87070; 87205; 87449; 87633; 93005; 99251; 99285; J7030; Q9967; A4216; G0463

== ENCOUNTER → 2020-12-06 08:27 | Outpatient (CLI) | payer OTHER, SELFPAY ==
[2018-04-21 10:10] VITALS: BMI 24.3
[2020-10-03 15:56] VITALS: BMI 26.6
--- NOTE | 2020-12-06 08:30 | BI_ITS ---
MAMMOGRAPHY - BILATERAL SCREENING REASON FOR EXAM: Female, 60 years old. Routine annual screening examination. PERTINENT HISTORY: Non-contributory. TECHNIQUE: Digital bilateral breast wayne (3D mammographic acquisition) in the CC and MLO projections. 2-D mediolateral oblique (MLO) and craniocaudad (CC) views of both breasts were obtained. CAD: Full Field Digital Mammography with Computer Added Detection was performed. COMPARISON: Comparison is made with prior study dated 03/24/2019 and 12/10/2017. FINDINGS: Breast Composition: There are scattered areas of fibroglandular density. There are no dominant masses or suspicious calcifications. Stable 1 cm well-defined nodule in the axillary region of the right breast. This most likely represents a benign appearing axillary lymph node. No other significant abnormalities are identified. There has been no significant change since the prior study. BI/SCRN MAMM (CAD)W/WAYNE BILAT IMPRESSION: Stable bilateral screening mammogram. Yearly follow-up mammogram recommended. (A) ASSESSMENT CATEGORY: BIRADS Category 2: Benign. A letter regarding these results will be sent to the patient by the facility within 30 days. Approximately 10% of breast cancers are not detected by mammography. A normal mammogram should not delay biopsy of a clinically suspicious abnormality. [id number] Electronically Signed: Azeem Tyler MD at 8:45 EDT , Service support ,
== END ==
PROVIDERS: PCP Student in an Organized Health Care Education/Training Program; Referring Provider Obstetrics & Gynecology; Visit Provider Obstetrics & Gynecology
DX: Z12.31 Encounter for screening mammogram for malignant neoplasm of breast (principal)
CPT/HCPCS: 77063; 77067

== ENCOUNTER → 2022-01-30 | Outpatient (CLI) | payer OTHER, SELFPAY ==
--- NOTE | 2022-01-30 07:52 | BI_ITS ---
MAMMOGRAPHY - BILATERAL SCREENING REASON FOR EXAM: Female, 61 years old. Routine annual screening examination. PERTINENT HISTORY: Non-contributory. TECHNIQUE: Digital bilateral breast wayne (3D mammographic acquisition) in the CC and MLO projections. 2-D mediolateral oblique (MLO) and craniocaudad (CC) views of both breasts were obtained. CAD: Full Field Digital Mammography with Computer Added Detection was performed. COMPARISON: Comparison is made with prior study dated 12/06/2020 and 03/24/2019. FINDINGS: Breast Composition: There are scattered areas of fibroglandular density. There are no dominant masses or suspicious calcifications. There is a stable 1 cm well-defined nodule in the axillary region of the right breast was likely represents a lymph node. There is a 2 cm lymph node in the left axilla. Clinical correlation is recommended. No other significant abnormalities are identified. There has been no significant change since the prior study. BI/SCRN MAMM (CAD)W/WAYNE BILAT IMPRESSION: Stable bilateral screening mammogram. Yearly follow-up mammogram recommended. (A) 2 cm lymph node is seen in the left axilla. ASSESSMENT CATEGORY: BIRADS Category 2: Benign. A letter regarding these results will be sent to the patient by the facility within 30 days. Approximately 10% of breast cancers are not detected by mammography. A normal mammogram should not delay biopsy of a clinically suspicious abnormality. [id number] Electronically Signed: Azeem Tyler MD at 9:58 EDT ,
== END | disposition home or self-care (01) ==
LOC: OPBI 07:50
PROVIDERS: PCP Student in an Organized Health Care Education/Training Program; Visit Provider Student in an Organized Health Care Education/Training Program
DX: Z12.31 Encounter for screening mammogram for malignant neoplasm of breast (principal)
CPT/HCPCS: 77063; 77067

== ENCOUNTER → 2023-02-11 | Outpatient (CLI) | payer OTHER, SELFPAY ==
--- NOTE | 2023-02-11 08:44 | BI_ITS ---
MAMMOGRAPHY - BILATERAL SCREENING REASON FOR EXAM: Female, 62 years old. Routine annual screening examination. PERTINENT HISTORY: Non-contributory. TECHNIQUE: Digital bilateral breast wayne (3D mammographic acquisition) in the CC and MLO projections. 2-D mediolateral oblique (MLO) and craniocaudad (CC) views of both breasts were obtained. CAD: Full Field Digital Mammography with Computer Added Detection was performed. COMPARISON: Comparison is made with prior study of January 30, 2022 and December 06, 2020. FINDINGS: Breast Composition: There are scattered areas of fibroglandular density. There are no dominant masses or suspicious calcifications. Stable bilateral axillary lymph nodes. No other significant abnormalities are identified. There has been no significant change since the prior study. BI/SCRN MAMM (CAD)W/WAYNE BILAT IMPRESSION: Stable bilateral screening mammogram. Yearly follow-up mammogram recommended. (A) ASSESSMENT CATEGORY: BIRADS Category 2: Benign. A letter regarding these results will be sent to the patient by the facility within 30 days. Approximately 10% of breast cancers are not detected by mammography. A normal mammogram should not delay biopsy of a clinically suspicious abnormality. [id number] Electronically Signed: Azeem Tyler MD at 12:27 EDT ,
== END | disposition home or self-care (01) ==
LOC: OPBI 08:43
PROVIDERS: PCP Student in an Organized Health Care Education/Training Program; Referring Provider Nurse Practitioner Family; Visit Provider Nurse Practitioner Family
DX: Z12.31 Encounter for screening mammogram for malignant neoplasm of breast (principal)
CPT/HCPCS: 77063; 77067

== ENCOUNTER 2023-03-07 19:40 | Emergency (ER) | payer OTHER, SELFPAY ==
[2023-03-07 19:41] VITALS: BP 128/50; PULSE 63; RESP 18; TEMP 36.3; O2SAT 100
--- NOTE | 2023-03-07 19:54 | RAD_ITS ---
INDICATION: ankle injury EXAMINATION/TECHNIQUE: X-RAY - LEFT XR Ankle 3 VIEWS COMPARISON: FINDINGS: SOFT TISSUES: Lateral soft tissue swelling. No radiopaque foreign body. BONES/JOINTS: There is a fracture at the lateral malleolus.. Normal alignment. Preservation of the joint space.. No sclerotic or destructive changes observed. RAD/Ankle min 3 Views IMPRESSION: Lateral malleolar fracture. Electronically Signed: Castillo Navarrete DO at 20:08 EST ,
--- NOTE | 2023-03-07 19:56 | EDS_ITS ---
<Statement entered by Jennifer Montesinos MD - 03/08/23 00:06> I have personally performed a face to face assessment of the patient and have reviewed the [place] Note. Patient present secondary left ankle injury. She was at her cabin when she misstepped injuring her left ankle. She denies pain at the knee or hip. She denies any other injury from the fall. Patient sitting upright in bed no acute distress. Head and neck examination unremarkable. Heart is regular rate and rhythm. Lung sounds are clear. Left lower extremity examination reveals no tenderness at the left hip or knee. No proximal fibular tenderness. She has tenderness and edema to the lateral malleolus of the ankle. No tenderness of the foot itself with strong distal pulses. Left ankle x-rays per my interpretation reveal a Kuhn B ankle fracture. Radiology interpretation reviewed and agrees. Patient placed in a walking boot and crutches. She will remain nonweightbearing until follow-up x-rays perf ormed. Patient is referred to podiatry for follow-up. HPI History of Present Illness Chief Complaint: Lower Extremity Injury Narrative Narrative: Patient is a 62-year-old female with no significant medical history presents to the emergency department with complaints of left ankle pain. Patient states she was walking out of her cabin when she rolled her left ankle hearing a step, patient's outside of her ankle began to swell and she had difficulty putting weight on it. She is here for evaluation concerning for any osseous injury. She denies any other injury [facility] Medical History (Updated 03/07/23 @ 20:27 by MAJOR Tay) Anxiety and depression Personal history of colonic polyps Home Medications cholecalciferol (vitamin D3) 25 mcg (1,000 unit) tablet (Vitamin D3) 1,000 unit PO DAILY 06/03/14 [History Last Taken 10/02/20] citalopram 10 mg tablet 10 mg PO DAILY 06/03/14 [History Last Taken 10/02/20] ascorbic acid (vitamin C) 500 mg tablet,extended release (Vitamin C ER) 500 mg PO DAILY 04/19/18 [History Last Taken 10/02/20] aspirin 81 mg tablet,delayed release 81 mg PO DAILY@0800 04/19/18 [History Last Taken 10/02/20] omega-3 fatty acids-fish oil 340 mg-1,000 mg capsule (Fish Oil) 1,000 mg PO DAILY 04/19/18 [History Last Taken 10/02/20] pyridoxine (vitamin B6) 50 mg tablet 50 mg PO DAILY 04/19/18 [History Last Taken 10/02/20] zinc sulfate 50 mg zinc (220 mg) tablet 50 mg PO DAILY SUPPLEMENT 10/03/20 [History Last Taken 10/02/20] hydrocodone-acetaminophen 5-325mg 5mg-325mg 1 tab PO Q4H PRN PRN Pain 3 days #10 TABLETS 03/07/23 [Rx Last Taken Unknown] Allergy/AdvReac Type Severity Reaction Status Date / Time amoxicillin Allergy Rash Verified 03/07/23 19:40 erythromycin base Allergy Rash Verified 03/07/23 19:40 kiwi Allergy Rash Verified 03/07/23 19:40 Sulfa (Sulfonamide Allergy Rash Verified 03/07/23 19:40 Antibiotics) Family History (Updated 03/07/23 @ 20:[address] Audra Bosch MD) Mother No significant past medical history Father No significant past medical history Surgical History History of colonoscopy Hx of cholecystectomy S/P tonsillectomy and adenoidectomy Social History household members: spouse Smoking Status: Never smoker alcohol intake: never substance use type: does not use ROS ROS ED ROS Narrative Constitutional: Negative for fever, chills, weight loss, weakness Eyes: Negative for vision loss, vision change, double vision ENT: Negative for any sore throat, ear pain, congestion Cardiovascular: Negative for any chest pain, tightness, palpitations Respiratory: Negative for any cough, sputum production, hemoptysis, dyspnea, dyspnea on exertion, orthopnea Gastrointestinal: Negative for any abdominal pain, nausea, vomiting, diarrhea, constipation, blood in stool, blood in vomit : Negative for any urinary frequency, dysuria, retention, blood in urine Muscle skeletal: Negative for any myalgias, arthralgias, neck pain, back pain. Positive for left ankle pain, left ankle swelling Neurological: Negative for any headache, syncope, numbness or tingling, dizziness Skin: Negative for any rashes, lumps, itching, abrasions, lacerations Psychiatric: Negative for any depression, anxiety, stress, suicidal ideation, homicidal ideation Hematologic: Negative for any easy bruising, excessive bruising, easy bleeding Allergies: Negative for any eczema, hives, rash EXAM Physical Exam Narrative Exam Narrative: Vital signs reviewed. Extremities: Patient has pain to the lateral malleolus, significant edema, minimal bruising. +2 pedal pulse. Worsening pain with any dorsal flexion. No pain posteriorly to the Achilles tendon. No pain along the fifth metatarsal. Neuro: Cranial nerves II through XII intact, no focal neurological deficits. Skin: Clean dry and intact with no rash, purpura, petechiae, vesicles or pustules. Backs/flank: No CVA tenderness, no midline spinal tenderness, no deformity. Psych: Normal mood and affect. No SI, HI or acute psychosis. Const Vital Signs: 03/07/23 19:41 Temperature 97.3 F L Temperature Source Temporal Pulse Rate 63 Respiratory Rate 18 Blood Pressure 128/50 H Blood Pressure Mean 76 Pulse Ox 100 MDM MDM Radiography Diagnostic Testing: Clinical Impression(s) from Imaging Studies Ankle X-Ray 03/07/23 19:54 IMPRESSION: Lateral malleolar fracture. Electronically Signed: Castillo Navarrete DO at 20:08 EST Reading Location ID and State: [facility] / [place] Tel [phone], Service support , Treatment and Re-Evaluation :: Patient appears generally well, patient appears nontoxic, vital signs are stable. Presenting to the emergency department with complaints of left ankle pain. Differential diagnose include left ankle strain, fibular fracture, tibial fracture. Patient will receive x-rays 3 views of the left ankle interpreted by ER physician. Patient's x-rays interpreted the ER physician show a lateral malleolus fracture, this is considered a Kuhn B. Patient will be placed in a walking boot, crutches with instruction. She will be nonweightbearing until she sees podiatry. Patient will follow-up with Dr. Rasheed from podiatry. She will keep the area elevated, ice. She will be given Carver for home, she states she will use her Advil at home most the time. All questions answered, she was given stri ct return precaution. Patient stable for discharge. Discharge Plan Triage Chief Complaint: Lower Extremity Injury ED Midlevel Provider: Rigoberto Carter ED Provider: Jennifer Montesinos Dx/Rx/DC Orders Clinical Impression: Ankle fracture, lateral malleolus, closed Instructions: ED Ankle Fracture Prescriptions: New hydrocodone-acetaminophen 5-325 mg tablet 1 tab PO Q4H PRN PRN (Reason: Pain) 3 Days Qty: 10 0RF No Action citalopram 10 MG tablet 10 mg PO DAILY cholecalciferol (vitamin D3) [Vitamin D3] 1,000 UNIT tablet 1,000 unit PO DAILY aspirin 81 MG tablet 81 mg PO DAILY@0800 pyridoxine (vitamin B6) 50 MG tablet 50 mg PO DAILY ascorbic acid (vitamin C) [Vitamin C] 500 MG tablet extended release 500 mg PO DAILY Fish Oil 1 EACH capsule 1,000 mg PO DAILY zinc sulfate 50 mg zinc (220 mg) Tablet 50 mg PO DAILY Primary Care Provider: Yared Cavazos Referrals: Yared Cavazos DO [Primary Care Provider] - Arvind Rasheed DPM [Med Staff - Active Staff] - Activity Restrictions/Additional Instructions: You are going to wear the walking boot, you are nonweightbearing until you see p odiatry. You will use the crutches, you will keep elevated and ice. You will use ibuprofen or Tylenol, you may use the Carver at nighttime if needed. Disposition Disposition: Home, Self Care
== END 2023-03-07 20:59 | disposition home or self-care (01) ==
PROVIDERS: Emergency Provider Emergency Medicine; PCP Student in an Organized Health Care Education/Training Program; Visit Provider Emergency Medicine
DX: S82.62XA Displaced fracture of lateral malleolus of left fibula, initial encounter for closed fracture (principal); X58.XXXA Exposure to other specified factors, initial encounter; Y92.89 Other specified places as the place of occurrence of the external cause; F41.8 Other specified anxiety disorders; Z79.899 Other long term (current) drug therapy; Z90.49 Acquired absence of other specified parts of digestive tract
CPT/HCPCS: 73610; 99284

== ENCOUNTER 2023-04-28 08:28 | Day surgery (SDC) | payer OTHER, SELFPAY ==
[2023-04-28] VITALS (7 sets, daily range): BP systolic 80–119; BP diastolic 54–72; PULSE 50–69; RESP 16; TEMP 36.2–36.3; O2SAT 95–100; BMI 28.4
--- NOTE | 2023-04-28 08:44 | H&P.OPEN ---
[facility] - General General Date of Service: 04/28/23 HPI Narrative SHANICE DALE, is a 62 F who presents for colonoscopy due to history of colon polyps. Patient's last colonoscopy was in 2018 no polyps at that time. Patient was recommended to have another colonoscopy in 5 years colonoscopy report noted as moderately tortuous colon. Patient has bowel movements daily denies any blood. Patient denies any chronic abdominal pain/nausea/vomiting/reflux. [facility] Medical History (Updated 04/28/23 @ 08:[address] Sushma Sabillon MD) Anemia Anxiety and depression Easy bruising Fracture of left ankle History of edema History of steroid therapy History of stress test Non-smoker Personal history of colonic polyps Post-menopausal Wears contact lenses Wears glasses Home Medications cholecalciferol (vitamin D3) 25 mcg (1,000 unit) tablet (Vitamin D3) 1,000 unit PO DAILY 06/03/14 [History Last Taken 10/02/20] citalopram 10 mg tablet 10 mg PO QHS 06/03/14 [History Last Taken 10/02/20] ascorbic acid (vitamin C) 500 mg tablet,extended release (Vitamin C ER) 500 mg PO DAILY 04/19/18 [History Last Taken 10/02/20] aspirin 81 mg tablet,delayed release 81 mg PO DAILY@0800 04/19/18 [History Last Taken 10/02/20] omega-3 fatty acids-fish oil 340 mg-1,000 mg capsule (Fish Oil) 1,000 mg PO DAILY 04/19/18 [History Last Taken 04/20/23] zinc sulfate 50 mg zinc (220 mg) tablet 50 mg PO DAILY SUPPLEMENT 10/03/20 [History Last Taken 10/02/20] calcium carb-ergocalciferol (vit D2) 600 mg calcium-200 unit tablet 2 tab PO BID 04/20/23 [History Last Taken Unknown] vitamin B complex 1 cap PO DAILY 04/20/23 [History Last Taken Unknown] Allergy/AdvReac Type Severity Reaction Status Date / Time amoxicillin Allergy Rash Verified 04/20/23 14:46 erythromycin base Allergy Rash Verified 04/20/23 14:46 kiwi Allergy Rash Verified 04/20/23 14:46 Sulfa (Sulfonamide Allergy Rash Verified 04/20/23 14:46 Antibiotics) Family History (Updated 03/07/23 @ 20:[address] Audra Bosch MD) Mother No significant past medical history Father No significant past medical history Surgical History History of colonoscopy Hx of cholecystectomy S/P tonsillectomy and adenoidectomy Social History household members: spouse Smoking Status: Never smoker alcohol intake: never substance use type: does not use Past Medical/Surgical History Planned Operation Planned Operative Procedure/s: CSCOPE OA S.O.S: No Previous Hospitalizations/Surgeries HX Hospitalizations: No HX of Surgeries: gallbladder cscope x2 Any Problems With Anesthesia: No You/Your Family Experience Fever (Hyperthermia) With Anes: No Cholinesterase deficiency: No Cardiovascular Hx Chest Pain within Last 2 months: No Hx of Irregular Heartbeat and/or Afib: No Hx Heart Attack: No Hx Congestive Heart Failure: No Hx Rheumatic Fever: No Hx Hypertension: No Hx Internal Defibrillator: No Hx Pacemaker: No Hx Cardiac Catheterization: No Hx Cardiac Surgery/Stents/Etc.: No Hx Stress Test: No Hx Pain in Legs when Walking/Leg Cramps: No Respiratory Chronic Cough: No HX of Shortness of Breath: No Hoarseness: No Hx Chronic Obstructive Pulmonary Disease (COPD): No Hx Asthma: No Hx Emphysema: No Hx Sleep Apnea: No Hx Respiratory Tract Infection/Cold (presently): No Do You Snore Loudly (louder than talking or can be heard): Yes Do You Often Feel Tired/ Fatigued/ Sleepy Dring Daytime?: No Has Anyone Observed You Stop Breathing During Sleep?: No Result (for STOP score): Negative Hx Smoking: No Smoking Status: Never smoker Gastrointestinal Hx Gastrointestinal Disorders: No Hx Gastrointestinal Bleed: No Hx Ulcer: No Hx Hiatal Hernia: No Difficulty Chewing/Swallowing: No Special diet followed at home: No Hx Unplanned Weight Loss of 20#: No HX Unplanned Weight Gain of 20#: No Neurological Hx Seizures: No HX Syncope/Blackout Spells/Unconsciousness: No Hx Transient Ischemic Attacks (TIA): No Hx Multiple Sclerosis: No Hx Parkinson's Disease: No Hx Head/Neck Injury: No Hx Headaches: Yes Hx Back Injury/Pain: No Recent Onset of Speech Difficulty: No Restless Legs: No Does patient have nerve stimulator: No Blood Disorder Hx Leukemia: No Bleeding Tendencies: Yes (bruise easily) Hx Deep Vein Thrombosis: No Hx High Cholesterol: No (borderline) Blood Transmitted Disease: No Hx Hepatitis: No Hx Cirrhosis: No Hx Anemia: No Hx Blood Disorders: No Reproduction : No Is Patient Lactating: No Hx Hysterectomy: No Hx Tubal Ligation: No Are You Post Menopause: Yes Genitourinary Hx Renal Disease: No Musculoskeletal Hx Arthritis: No Hx Rheumatoid Arthritis: No Hx Gout: No Recent Onset of an Orthopedic Problem: No Endocrine Hx Diabetes: No Thyroid Disease: No Hx Steroid Therapy: No Psycho/Social Hx Substance Use: No Hx Alcohol Use: No Hx Anxiety: Yes (on med) Hx Depression: No Mental Illness: No Hx Dementia: No Miscellaneous Hx Cancer: No Recent Exposure to Contagious Disease: No Hx of C-Diff: No Any Loose Teeth: No Allergies amoxicillin Allergy (Verified 04/20/23 14:46) Rash erythromycin base Allergy (Verified 04/20/23 14:46) Rash kiwi Allergy (Verified 04/20/23 14:46) Rash Sulfa (Sulfonamide Antibiotics) Allergy (Verified 04/20/23 14:46) Rash Discharge Is Pt Admitted From a [facility], or a Senior Care: No After D/C, Where Do you Plan to Go: Return Home From the PAT History Number of Risk Factors: 1 Physical Exam Const alert, oriented x3 and no apparent distress HEENT normocephalic and head/scalp atraumatic Resp normal respiratory effort Cardio regular rate GI soft to palpation and non-tender; Negative for non-distended Palpation: Negative for guarding Extremity no clubbing, cyanosis or edema Skin no rashes or lesions noted Neuro CN's II-XII intact bilaterally Psych mental status grossly normal Assessment & Plan Assessment/Plan (1) Personal history of colonic polyps: Surgery Risks - Colonoscopy I discussed with the patient the risks of the procedure: Yes Risks Include but are not Limited To: Risks include but are not limited to: Bleeding, perforation requiring further surgery, inability to complete colonoscopy requiring barium enema.
[2023-04-28] MEDS: Lactated Ringers 1,000 ML 15 ML IV (09:01)
--- NOTE | 2023-04-28 10:00 | OP.COLON_ITS ---
Patient Name: Lolis Tan Procedure Date: 04/28/2023 9:33 AM Date of : 1960 Age: 62 Procedure: Colonoscopy Indications: High risk colon cancer surveillance: Personal history of colonic polyps Providers: Sushma Sabillon MD Referring MD: Sushma Sabillon MD Medicines: Monitored Anesthesia Care Patient Profile: Last Colonoscopy: April 2018. Complications: No immediate complications. Procedure: Pre-Anesthesia Assessment: - Prior to the procedure, a History and Physical was performed, and patient medications and allergies were reviewed. The patient's tolerance of previous anesthesia was also reviewed. The risks and benefits of the procedure and the sedation options and risks were discussed with the patient. All questions were answered, and informed consent was obtained. Prior Anticoagulants: The patient has taken no anticoagulant or antiplatelet agents. ASA Grade Assessment: Per anesthesia. After reviewing the risks and benefits, the patient was deemed in satisfactory condition to undergo the procedure. After I obtained informed consent, the scope was passed under direct vision. Throughout the procedure, the patient's blood pressure, pulse, and oxygen saturations were monitored continuously. The Colonoscope was introduced through the anus and advanced to the cecum, identified by the appendiceal orifice, ileocecal valve and palpation. The colonoscopy was performed without difficulty. The patient tolerated the procedure well. The quality of the bowel preparation was good. Scope In: 9:39:30 AM Scope Withdrawal Time 0 hours 5 minutes 27 seconds Scope Out: 9:54:55 AM Total Procedure Duration Time 0 hours 15 minutes 25 seconds Findings: Hemorrhoids were found on perianal exam. Non-bleeding internal hemorrhoids were found. The hemorrhoids were Grade I (internal hemorrhoids that do not prolapse). The entire examined colon appeared normal. Impression: - Hemorrhoids found on perianal exam. - Non-bleeding internal hemorrhoids. - The entire examined colon is normal. - No specimens collected. Recommendation: - Discharge patient to home. - Resume previous diet. - Continue present medications. - Repeat colonoscopy in 10 years for screening purposes. Procedure Code(s): --- Professional --- G0105, PT, Colorectal cancer screening; colonoscopy on individual at high risk Diagnosis Code(s): --- Professional --- Z86.010, Personal history of colonic polyps K64.0, First degree hemorrhoids CPT copyright 2021 [employer]. All rights reserved. The codes documented in this report are preliminary and upon perfusionist review may be revised to meet current compliance requirements. MD Sushma Garcia MD 04/28/2023 10:00:06 AM This report has been signed electronically. Number of Addenda: 0 Note Initiated On: 04/28/2023 9:33 AM
--- NOTE | 2023-04-28 10:00 | OP.CCLET_ITS ---
04/28/2023 Yared Cavazos [address] [place] [address] Re : Colonoscopy procedure for Lolis Tan Dear Dr. Cavazos This procedure was performed on Friday, April 28, 2023. My impressions and recommendations are as follows: Impressions : - Hemorrhoids found on perianal exam. - Non-bleeding internal hemorrhoids. - The entire examined colon is normal. - No specimens collected. Recommendations : - Discharge patient to home. - Resume previous diet. - Continue present medications. - Repeat colonoscopy in 10 years for screening purposes. My findings are described in the full procedure note, which is enclosed. If I can be of further assistance, please feel free to contact me at Doctor phone number(s): , Work: . Sincerely, MD Sushma Garcia MD 04/28/2023 10:00:06 AM This report has been signed electronically.
== END 2023-04-28 11:15 | disposition home or self-care (01) ==
LOC: EN 08:29 → AC 08:31
PROVIDERS: PCP Student in an Organized Health Care Education/Training Program; Referring Provider Student in an Organized Health Care Education/Training Program; Visit Provider Surgery
PROC: 0DJD8ZZ Inspection of Lower Intestinal Tract, Via Natural or Artificial Opening Endoscopic (ICD-10-PCS; CPT 45378; principal; 2023-04-28 09:40)
DX: Z12.11 Encounter for screening for malignant neoplasm of colon (principal); K64.0 First degree hemorrhoids; Z86.010 Personal history of colon polyps; Z79.82 Long term (current) use of aspirin; Z90.49 Acquired absence of other specified parts of digestive tract
CPT/HCPCS: G0105; J7120; J2405

== ENCOUNTER 2023-06-09 10:30 | Outpatient (RCR) | payer OTHER, SELFPAY ==
--- NOTE | 2023-05-26 12:03 | HP.PTDCSUM ---
Discharge Summary D/C summary: It has been my pleasure to treat SHANICE DALE referred by Dr. Evans Blackwood DPM, with the diagnosis of L ankle Fx 03/07/23 for a total of 1 visit(s). Discharge Date: Please see the following information for a summary of their discharge status. Pain L ankle: Pain Intensity (Out of 10): 0 Goals Goal 1:: Increase L ankle DF ROM x 10 degrees to aid with restoring normalized gait pattern Goal 2:: Decrease L ankle pain x 50% to aid with prolonged ambulation Goal 3:: Pt will be able to ambulate greater than 1000 feet to aid with community ambulation Goal 4:: I with HEP Plan Plan: L ankle stretching and strengthening, PROM and mobs, balance and proprio, core strengthening, nustep, and HEP D/C Information d/c sentence: If there are questions or concerns regarding this patient's physical therapy, please feel free to call me at [phone]. Thank you for the referral of this patient. Sincerely, Toni Schaefer, PT, ATC Balance/Gait/Functional tests Balance/Special Test Scores Lower Extremity Functional Score: 52
--- NOTE | 2023-08-09 11:34 | HP.PTDCSUM ---
Discharge Summary D/C summary: It has been my pleasure to treat SHANICE DALE referred by Dr. Evans Blackwood DPM, with the diagnosis of L ankle Fx 03/07/23 for a total of 5 visit(s). Discharge Date: Please see the following information for a summary of their discharge status. Subjective Subjective: Patient reports more stiffness than pain. No soreness following last session. States the stretches have been very helpful. Pain L ankle: Pain Intensity (Out of 10): 3 Objective Objective/Function: Added a few balance activities on foam with no increased pain, had minimal swaying, used // bars to self correct. Patient continues to respond very well wo manual interventions. states less tightness post session. Goals Goal 1:: Increase L ankle DF ROM x 10 degrees to aid with restoring normalized gait pattern Goal 2:: Decrease L ankle pain x 50% to aid with prolonged ambulation Goal 3:: Pt will be able to ambulate greater than 1000 feet to aid with community ambulation Goal 4:: I with HEP Plan Plan: L ankle stretching and strengthening, PROM and mobs, balance and proprio, core strengthening, nustep, and HEP D/C Information d/c sentence: If there are questions or concerns regarding this patient's physical therapy, please feel free to call me at [phone]. Thank you for the referral of this patient. Sincerely, Toni Schaefer, PT, ATC Balance/Gait/Functional tests Balance/Special Test Scores Lower Extremity Functional Score: 52
== END 2023-06-09 19:00 | disposition home or self-care (01) ==
LOC: PT 10:30
PROVIDERS: PCP Student in an Organized Health Care Education/Training Program; Referring Provider Student in an Organized Health Care Education/Training Program; Visit Provider Student in an Organized Health Care Education/Training Program
DX: S82.65XD Nondisplaced fracture of lateral malleolus of left fibula, subsequent encounter for closed fracture with routine healing (principal)
CPT/HCPCS: 97110; 97161

== ENCOUNTER → 2024-10-30 | Outpatient (CLI) | payer BC, SELFPAY ==
--- NOTE | 2024-10-30 13:25 | BI_ITS ---
EXAM: SCRN MAMM (CAD)W/WAYNE BILAT DATE: 10/30/2024 CLINICAL HISTORY: F, Age 64 y/o , SCREENING TECHNIQUE: SCRN MAMM (CAD)W/WAYNE BILAT COMPARISON: Prior exam(s) dated 02/11/2023, 01/30/2022, 12/06/2020. FINDINGS: TISSUE DENSITY: There are scattered areas of fibroglandular density. Bilateral Breast Mammographic Findings: No significant masses, calcifications or other abnormalities are identified. BI/SCRN MAMM (CAD)W/WAYNE BILAT IMPRESSION: There is no mammographic evidence of malignancy. OVERALL FINAL ASSESSMENT BI-RADS 1: NEGATIVE. RECOMMEND ANNUAL MAMMOGRAPHIC SCREENING. RECOMMENDATION: Routine annual follow-up in 1 Year A letter with findings and recommendations will be mailed to the patient. Reading Location: [id number]
== END | disposition home or self-care (01) ==
LOC: OPBI 13:23
PROVIDERS: PCP Student in an Organized Health Care Education/Training Program; Referring Provider Student in an Organized Health Care Education/Training Program; Visit Provider Student in an Organized Health Care Education/Training Program
DX: Z12.31 Encounter for screening mammogram for malignant neoplasm of breast (principal)
CPT/HCPCS: 77063; 77067